=== PATIENT | female | born 1970 | race Caucasian/White ===

== ENCOUNTER → 2016-11-12 | Outpatient (CLI) | payer BC, OTHER ==
--- NOTE | 2016-11-12 12:49 | DI ---
MRI UP EXTREMITY JNT W/O CN,11/12/2016 10:03 AM: Clinical History: Left shoulder impingement Previous Exam: Plain films of the contralateral shoulder. 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 There is some subchondral cyst form ation and some downwardly projecting osteophytes. The acromion process is normal with convex undersurface. The left glenohumeral joint is unremarkable. The glenoid labrum is grossly normal without visible tear. There is some mild tendinosis of the myotendinous junction of the supraspinatus tendon. The infraspinatus tendon and teres minor tendons are normal. The distal supraspinatus is also normal. The subscapularis tendon is normal. The long head of the biceps tendon is within normal limits. There is a small amount of fluid within the subcoracoid bursa. The major vascular flow voids are unremarkable. Signal within the musculature is unremarkable. Impression: 1. 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 Luis elate with impingement. 2. Small amount of fluid within the subcoracoid bursa could represent subcoracoid bursitis.
== END ==
LOC: MRI 09:58
PROVIDERS: ATTEND Orthopaedic Surgery
DX: M75.42 Impingement syndrome of left shoulder (principal); M75.52 Bursitis of left shoulder
CPT/HCPCS: 73221

== ENCOUNTER 2017-01-05 11:15 | Day surgery (SDC) | payer BC, OTHER ==
[~2017-01-05 11:15] MED LIST: EPINEPHrine Inj (1:1,000) 30mg/30ml vial ONE; LIDOCAINE W/ SODIUM BICARB 0.5 ML SYR ONE; Lactated Ringers 1,000 ML PRIMARY IV ONE; MIDAZOLAM 5 MG/1 ML ONE; Ropivacaine 0.2% VIAL 20 ML ONE; ceFAZolin Inj 2gm (Premix) 50 ML IV ONE; fentaNYL Inj 250 MCG/5 ML VIAL ONE
[2017-01-05] MEDS ORDERED: SCOPOLAMINE HYDROBROMIDE 1.5 MG - 1 EACH PATCH TRANSDERM ONE (11:28)
[2017-01-05] MEDS ORDERED: LIDOCAINE MPF 2% - 5 ML (20 MG/1 ML) ONE (11:42)
[2017-01-05 11:46] LABS: URINE SPECIFIC GRAVITY - MAN 1.018
[2017-01-05] MEDS ORDERED: MEPIVACAINE HCL/PF 20 MG/1 ML IV ONE (11:51)
[2017-01-05] MEDS ORDERED: BUPIVACAINE 0.5% W/EPI MPF -30 ML VIAL IV ONE (11:52)
[2017-01-05] MEDS ORDERED: DEXAMETHASONE PF 10 MG/1 ML VIAL ONE ×2 (11:52→14:00)
--- NOTE | 2017-01-05 12:22 | CRNA.PROCE ---
Nerve Block Documentation - - Safety Measures: Time Out Taken, Site Verified - - Type of Nerve Block Used: Left Interscalene Block (Analgesia block for post Left Shoulder surgery.) Position for Nerve Block: Supine Moniters Used During Block: EKG, SPO2, NIBP Oxygen Sumpplented: Yes Sedation Used - Enter Amount in Comment Field: Midazolam (mg): Yes (3), Fentanyl (mcg): Yes (50) Skin Prep Used: ChloroPrep (Twice) Draped: No Technique: Nerve Stimulator Nerve Block Needle Used: 40 mm ProBlk II Stimulation Hz: 1 Stimulation Staring mA: 1.6 Stimulation Ending mA: 0.48 Local Anesthetic - Enter Amt in Comment Field: 0.5 % Bupivicaine with Epinephrine 1:200,000 (mL): Yes (20 ml in 2.0 ml increments), 2 % Mepivacaine ( mL): Yes (10 ml in 1.0 ml incremetns) Additives to Nerve Blocks: Dexamethasone (mg): Yes (10)
[2017-01-05] MEDS ORDERED: Ondansetron ODT Tab 8 MG TAB PO PRN ×2 (12:26→15:50)
[2017-01-05] MEDS ORDERED: ATROPINE SULFATE 0.4 MG/1 ML VIAL IVP PRN (12:26)
[2017-01-05] MEDS ORDERED: fentaNYL Inj 100 MCG/2 ML VIAL IVP PRN (12:26)
[2017-01-05] MEDS ORDERED: HYDROmorphone 2 MG/1 ML IVP PRN (12:26)
[2017-01-05] MEDS ORDERED: NORMAL SALINE 10 ML SYRINGE FLUSH IVP PRN ×2 (12:26→15:50)
[2017-01-05] MEDS ORDERED: ONDANSETRON 4 MG/2 ML VIAL IVP PRN ×2 (12:26→15:50)
[2017-01-05] MEDS ORDERED: Lactated Ringers 1,000 ML PRIMARY IV SCH ×2 (12:30→16:15)
[2017-01-05] MEDS ORDERED: Lactated Ringers 1,000 ML PRIMARY IV ONE ×2 (14:00→15:41)
[2017-01-05] MEDS ORDERED: KETOROLAC 30 MG/1 ML VIAL ONE (15:27)
[2017-01-05] MEDS ORDERED: ONDANSETRON 4 MG/2 ML VIAL ONE (15:28)
[2017-01-05] MEDS ORDERED: BISACODYL 5 MG TABLET PO PRN (15:50)
[2017-01-05] MEDS ORDERED: diphenhydrAMINE 25 MG CAPSULE PO PRN (15:50)
[2017-01-05] MEDS ORDERED: Prochlorperazine Tab 10 MG TAB PO PRN (15:50)
[2017-01-05] MEDS ORDERED: IBUPROFEN 400 MG TABLET PO PRN (15:50)
[2017-01-05] MEDS ORDERED: BISACODYL 10 MG SUPPOSITORY RECTAL PRN (15:50)
[2017-01-05] MEDS ORDERED: MAG HYDROX/AL HYDROX/SIMETH 30 ML SUSP PO PRN (15:50)
[2017-01-05] MEDS ORDERED: ACETAMINOPHEN 325 MG TABLET PO PRN (15:50)
[2017-01-05] MEDS ORDERED: CALCIUM CARBONATE 500 MG (TUMS) CHEWABLE TABLET PO PRN (15:50)
[2017-01-05 16:07] VITALS: RESP 16
[2017-01-05] MEDS ORDERED: HYDROcodone-APAP 7.5 MG-325 MG TABLET PO PRN (16:08)
[2017-01-05] MEDS ORDERED: MORPHINE SULFATE 2 MG/1 ML IVP PRN (16:08)
[2017-01-05] MEDS ORDERED: HYDROmorphone 2 MG/1 ML ONE (16:31)
[2017-01-05] MEDS ORDERED: HYDROcodone-APAP 7.5 MG-325 MG TABLET PO ONE (17:12)
[2017-01-05 18:13] VITALS: TEMP 97.6
== END 2017-01-05 18:00 | disposition home or self-care (01) ==
LOC: SDSC 11:15
PROVIDERS: ATTEND Orthopaedic Surgery
DX: M75.22 Bicipital tendinitis, left shoulder (principal); M75.42 Impingement syndrome of left shoulder; M19.012 Primary osteoarthritis, left shoulder; M24.012 Loose body in left shoulder
CPT/HCPCS: 23430; 29806; 29823; 29824; 29826; 84703; 87641; J0171; J0670; J0690; J1100; J1170; J1885; J2001; J2250; J2405; J2704; J2795; J3010; S0020; J7120